=== PATIENT | male | born 1990 | race African-American/Black ===

== ENCOUNTER 2016-05-13 17:23 | Emergency (ER) | payer OTHER ==
[~2016-05-13] VITALS: Ht 172.7 cm; Wt 68.0 kg
--- NOTE | 2016-05-13 17:28 | ED SKIN/ALLERGY COMPLAINT ---
History of Present Illness General Chief Complaint: Animal/Insect Bite Stated Complaint: SPIDER BITE Source: patient Exam Limitations: no limitations Vital Signs & Intake/Output Vital Signs & Intake/Output Vital Signs Date Time Temp Pulse Resp B/P Pulse O2 O2 Flow FiO2 Ox Delivery Rate 05/13 1733 98.9 74 16 137/78 98 Room Air Allergies Coded Allergies: NO KNOWN ALLERGIES (07/10/12) Reconcile Medications Ibuprofen 800 MG TABLET 1 TAB PO Q8 PRN PAIN Sulfamethoxazole/Trimethoprim (Bactrim Ds Tablet) 800 MG-160 MG TABLET 1 TAB PO BID INFECTION Triage Nurses Notes Reviewed? yes HPI: Patient is a 25-year-old male presents complaining of infection to his left calf. Patient noticed redness and pain 2 days ago. Redness gradually spreading and pain gradually worsening. Patient is unsure if he was bit by an insect to the area. Pain is moderate worsens with palpation. Patient reports yesterday after showering he noticed a small amount of purulent drainage from the area. Patient denies fevers or chills. (POLO ALEXIS) Past History Medical History Any Pertinent Medical History? none Surgical History Surgical History: non-contributory Psychosocial History What is your primary language Montenegrin Family History Hx Contributory? No (POLO ALEXIS) Review of Systems Review of Systems Constitutional: Denies: chills, fever. EENTM: Reports: nasal congestion. Respiratory: Denies: cough, short of breath. Cardiovascular: Denies: chest pain. GI: Denies: nausea, vomiting. Skin: Reports: see HPI. Neurological/Psychological: Reports: no symptoms. Hematologic/Endocrine: Reports: no symptoms. Immunologic/Allergic: Reports: no symptoms. (POLO ALEXIS) Physical Exam Physical Exam General Appearance: well developed/nourished, alert, awake Head: atraumatic, normal appearance Eyes: Bilateral: normal appearance. Ears, Nose, Throat: hearing grossly normal Neck: normal inspection, supple, full range of motion Respiratory: no respiratory distress Back: normal range of motion Extremities: erythema to the left calf with 2 cm of central induration. Neurologic/Psych: no motor/sensory deficits, awake, alert, oriented x 3, normal gait, normal mood/affect Skin: see extremities exam (POLO ALEXIS) Progress Differential Diagnosis: abscess/cellulitis, insect bite, necrotizing fasciitis Plan of Care: Orders Procedure Date/time Status EXTREMETIES CULTURE 05/13 1745 Active Microbiology 05/13 1749 EXTREMITIE: Culture & Sensitivity - RECD 05/13 1749 EXTREMITIE: Gram Stain - RECD Departure Departure Time of Disposition: 1752 Disposition: HOME OR SELF CARE Condition: Stable Clinical Impression Primary Impression: Abscess of left leg Referrals: HALEIGH SHERMAN,GUI Still (PCP/Family) Additional Instructions: Change the dressing daily. The packing should remain in for 2 days. If in 2 days your symptoms have completely resolved, then you may remove the packing on your own. If you continue with any redness, pain, or swelling then return to the emergency department in 2 days for recheck. Return to the emergency department immediately if redness spreading, fevers, or worsening of symptoms. Departure Forms: Customer Survey General Discharge Information Prescriptions: Current Visit Scripts Sulfamethoxazole/Trimethoprim (Bactrim Ds Tablet) 1 TAB PO BID #14 TAB Ibuprofen 1 TAB PO Q8 PRN PAIN #20 TAB (POLO ALEXIS) PA/CERTIFIED MORTICIAN Co-Sign Statement Statement: ED Attending supervision documentation- [] I saw and evaluated the patient. I have also reviewed all the pertinent lab results and diagnostic results. I agree with the findings and the plan of care as documented in the PA's/CERTIFIED MORTICIAN's documentation. [X] I have reviewed the ED Record and agree with the PA's/CERTIFIED MORTICIAN's documentation. [] Additions or exceptions (if any) to the PAs/CERTIFIED MORTICIAN's note and plan are summarized below: [] (DELANEY SHERMAN,ZAHRA) Procedures Incision and Drainage Progress: Area prepped with Betadine. 1% lidocaine with epinephrine 8 mL injected to the area. 1.5 cm incision made with small amount of purulent drainage. Culture obtained. Blunt dissection to break up loculations. 1/2 inch iodoform gauze placed. Well tolerated by patient. (POLO ALEXIS)
[2016-05-13 17:33] VITALS: BP 137/78
[2016-05-13] MEDS ORDERED: IBUPROFEN800 M1 PO (17:55)
[2016-05-13] MEDS ORDERED: BACTRIM DS TAB1 EACH PO (17:55)
== END 2016-05-13 18:00 ==
LOC: ERH 17:23
DX: L02.416 Cutaneous abscess of left lower limb (principal)
CPT/HCPCS: 87184; 87070; 87147

== ENCOUNTER 2016-10-10 12:48 | Emergency (ER) | payer OTHER ==
[~2016-10-10] VITALS: Ht 152.4 cm; Wt 70.3 kg
[~2016-10-10 12:48] MED LIST: BACTRIM DS TAB1 EACH PO; IBUPROFEN800 M1 PO
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
[2016-10-10] MEDS ORDERED: NAPROSYN500 M1 PO (17:15)
[2016-10-10] MEDS ORDERED: ROBAXIN500 M1 PO (17:15)
[2016-10-10 17:27] VITALS: BP 117/62
== END 2016-10-10 17:28 ==
LOC: ERH 12:48
DX: S29.011A Strain of muscle and tendon of front wall of thorax, initial encounter (principal); Y04.0XXA Assault by unarmed brawl or fight, initial encounter; Y93.9 Activity, unspecified; Y92.9 Unspecified place or not applicable
CPT/HCPCS: 71100-RT; 96372; J1885